=== PATIENT | female | born 1975 | race African-American/Black ===

== ENCOUNTER 2016-07-15 11:38 | Inpatient (IN) | payer BC ==
[2016-07-15 12:06] VITALS: BMI 26.2
--- NOTE | 2016-07-15 14:39 | HP ---
CIWA Score - CIWA Score Nausea/Vomitin-Int. Nausea w/Dry Heave Muscle Tremors: 4-Moderate,w/Arms Extend Anxiety: 4-Mod. Anxious/Guarded Agitation: 4-Moderately Restless Paroxysmal Sweats: 1-Minimal Palms Moist Orientation: 0-Oriented Tacttile Disturbances: 0-None Auditory Disturbances: 0-None Visual Disturbances: 0-None Headache: 0-None Present CIWA-Ar Total Score: 17 Admission ROS BHS - HPI Chief Complaint: DETOX TX FOR ALCOHOL DEPENDENCE Allergies/Adverse Reactions: Allergies Allergy/AdvReac Type Severity Reaction Status Date / Time codeine Allergy Severe Hives Verified 07/15/16 13:18 History of Present Illness: 41 Y/O AA/FEMALE WITH A HX OF ALCOHOL DEPENDENCE SEEKING DETOX TX Exam Limitations: No Limitations - Ebola screening Have you traveled outside of the country in the last 21 days: No Have you had contact with anyone from an Ebola affected area: No Have you been sick,other than usual withdrawal symptoms: No - Review of Systems Constitutional: Chills, Loss of Appetite, Night Sweats, Changes in sleep, Unintentional Wgt. Loss EENT: reports: Blurred Vision, Tearing, Nose Congestion, Dental Problems (TOOTH DECAY) Respiratory: reports: Shortness of Breath (HX ASTHMA), Wheezing Cardiac: reports: Lightheadedness GI: reports: Diarrhea, Nausea, Poor Appetite : reports: Frequency Musculoskeletal: reports: Back Pain, Joint Pain, Muscle Pain Integumentary: reports: Dryness Neuro: reports: Tremors, Dizziness Endocrine: reports: No Symptoms Reported Hematology: reports: Anemia Psychiatric: reports: Orientated x3, Anxious Other Systems: Reviewed and Negative Patient History - Patient Medical History Hx Anemia: Yes (TAKES IRON PILLS) Hx Asthma: Yes (MDI) Hx Chronic Obstructive Pulmonary Disease (COPD): No Hx Cardiac Disorders: No Hx Hypertension: Yes (ON MED) Hx Hypercholesterolemia: No HX Cerebrovascular Accident: No Hx Seizures: No Hx Diabetes: Yes (BORDERLINE- NO MED) Hx Gastrointestinal Disorders: Yes (acid reflux-PRILOSEC OR NEXIUM) Hx Genitourinary Disorders: No Hx Sexually Transmitted Disorders: No (DENIES) Hx Renal Disease (ESRD): No Hx Thyroid Disease: No Hx Human Immunodeficiency Virus (HIV): No (NEGATIVE HX) Hx Hepatitis C: No Hx Depression: No Hx Suicide Attempt: No (DENIES) Hx Schizophrenia: No - Patient Surgical History Past Surgical History: Yes Hx Neurologic Surgery: No Hx Cataract Extraction: No Hx Cardiac Surgery: No Hx Lung Surgery: No Hx Breast Surgery: No Hx Breast Biopsy: No Hx Abdominal Surgery: No Hx Appendectomy: No Hx Cholecystectomy: No Hx Genitourinary Surgery: No Hx Section: No Hx Orthopedic Surgery: Yes (tonsilectomy) Anesthesia Reaction: No - PPD History Previous Implant?: Yes Documented Results: Negative w/o proof Implanted On Prior [facility] Admission?: No PPD to be Administered?: Yes - Reproductive History Patient is a Female of Child Bearing Age (11 -55 yrs old): Yes Last Menstrual Period: 07/01/16 Patient : No - Smoking Cessation Smoking history: Current every day smoker Have you smoked in the past 12 months: Yes Aproximately how many cigarettes per day: 10 Hx Chewing Tobacco Use: No Initiated information on smoking cessation: Yes 'Breaking Loose' booklet given: 07/15/16 - Substance & Tx. History Hx Alcohol Use: Yes (ROBIN/BEER) Hx Substance Use: No (DENIES) Substance Use Type: Alcohol Hx Substance Use Treatment: Yes - Substances Abused Alcohol-robin/beer Route: Oral Frequency: Daily Amount used: 2-3 pts./1-6 pk. Age of first use: 15 Date of Last Use: 07/15/16 Family Disease History - Family Disease History Family Disease History: Diabetes: Grandparent (HTN-), Other: Grandparent , Father (KIDNEY TRANSPLANT) Admission Physical Exam BHS - Vital Signs Vital Signs: Vital Signs - 24 hr 07/15/16 12:02 Temperature 96.7 F L Pulse Rate 74 Respiratory 18 Rate Blood Pressure 140/92 - Physical General Appearance: Yes: Moderate Distress, Alcohol on Breath, Intoxicated, Irritable, Anxious HEENTM: Yes: EOMI, Normocephalic, STEPHANI, Pharynx Normal Respiratory: Yes: Chest Non-Tender, Lungs Clear, Normal Breath Sounds, No Respiratory Distress Neck: Yes: Supple, Trachea in good position Breast: Yes: Breast Exam Deferred Cardiology: Yes: Regular Rhythm, Regular Rate, S1, S2 Abdominal: Yes: Normal Bowel Sounds, Non Tender, Soft Genitourinary: Yes: Within Normal Limits Back: Yes: Within Normal Limits Musculoskeletal: Yes: full range of Motion, Gait Steady Extremities: Yes: Normal Range of Motion, Non-Tender Neurological: Yes: ear specialist II-XII NML intact, Fully Oriented, Alert Integumentary: Yes: Dry, Warm Lymphatic: Yes: Within Normal Limits - Diagnostic (1) Alcohol dependence with uncomplicated withdrawal Current Visit: Yes Status: Acute (2) Asthma Current Visit: Yes Status: Chronic Qualifiers: Asthma severity: mild intermittent Asthma complication type: uncomplicated Qualified Code(s): J45.20 - Mild intermittent asthma, uncomplicated (3) GERD (gastroesophageal reflux disease) Current Visit: Yes Status: Chronic Qualifiers: Esophagitis presence: without esophagitis Qualified Code(s): K21.9 - Gastro-esophageal reflux disease without esophagitis (4) Borderline diabetes mellitus Current Visit: Yes Status: Suspected (5) History of anemia Current Visit: Yes Status: Suspected (6) Hypertension Current Visit: Yes Status: Chronic Qualifiers: Hypertension type: essential hypertension Qualified Code(s): I10 - Essential (primary) hypertension Cleared for Admission S - Detox or Rehab [facility] Level of Care: Medically Managed Detox Regimen/Protocol: Librium [facility] Breath Alcohol Content Breath Alcohol Content: 0.062 Urine Pregancy Test - Result Urine Test Results: Negative- NO Line Present Urine Drug Screen - Results Drug Screen Negative: Yes
[2016-07-15] MEDS ORDERED: LOPERAMIDE HCL 2 MG CAPSULE PO PRN (14:48)
[2016-07-15] MEDS ORDERED: MAG HYDROX/AL HYDROX/SIMETH 30 ML UNIT-DOSE CUP PO PRN (14:48)
[2016-07-15] MEDS ORDERED: P-EPHED 60MG/TRIPROLIDI 2.5MG TABLET PO PRN (14:48)
[2016-07-15] MEDS ORDERED: IBUPROFEN 400 MG TABLET (FP) PO PRN (14:48)
[2016-07-15] MEDS ORDERED: NICOTINE POLACRILEX 2 MG GUM BUC PRN (14:48)
[2016-07-15] MEDS ORDERED: guaiFENesin/D-METHORPHAN HB 10 ML UNIT-DOSE CUPS PO PRN (14:48)
[2016-07-15] MEDS ORDERED: MAGNESIUM CITRATE 300 ML BOTTLE PO PRN (14:48)
[2016-07-15] MEDS ORDERED: MAGNESIUM HYDROX 2400MG/30ML ORAL SUSPENSION 30 ML CUP PO PRN (14:48)
[2016-07-15] MEDS ORDERED: MENTHOL/PHENOL 1 EACH UD MM PRN (14:48)
[2016-07-15] MEDS ORDERED: chlordiazePOXIDE HCL 25 MG CAPSULE PO PRN (14:48)
[2016-07-15] MEDS ORDERED: hydrOXYzine PAMOATE 25 MG CAPSULE (FP) PO PRN (14:48)
[2016-07-15] MEDS ORDERED: ALBUTEROL SO4 6.7 GM HFA INHALER IH PRN (14:50)
[2016-07-15] MEDS ORDERED: ALBUTEROL SO4 0.083% IH SOL 2.5 MG/3 ML VIAL.NEB. NEB PRN (14:53)
[2016-07-15] MEDS ORDERED: chlordiazePOXIDE HCL 25 MG CAPSULE PO ONE (15:36)
[2016-07-15] MEDS: amLODIPine BESYLATE 5 MG TABLET (FP) PO SCH (15:57)
[2016-07-15] MEDS: NICOTINE 14 MG/24 HOURS TOPICAL PATCH TD SCH (15:59)
[2016-07-15] MEDS: FERROUS SO4 325 MG TABLET (FP) PO SCH (18:04)
[2016-07-15] MEDS: chlordiazePOXIDE HCL 25 MG CAPSULE PO SCH ×2 (18:04→22:15)
[2016-07-15] MEDS: LORATADINE 10 MG TABLET PO SCH (19:59)
[2016-07-15] MEDS: FLUTICASONE PROP 0.05% 16 GM NASAL SPRAY NS SCH (20:00)
[2016-07-15 20:11] LABS: URINE APPEARANCE SLCLOUDY; URINE BILIRUBIN NEGATIVE (NEGATIVE); URINE BLOOD NEGATIVE (NEGATIVE); URINE COLOR YELLOW; URINE GLUCOSE (UA) NEGATIVE (NEGATIVE); URINE KETONE NEGATIVE (NEGATIVE); URINE NITRITE NEGATIVE (NEGATIVE); URINE PROTEIN NEGATIVE (NEGATIVE); URINE UROBILINOGEN NEGATIVE E.U./dl (0.2-1.0)
[2016-07-15 20:17] LABS: URINE LEUK ESTERASE TRACE (NEGATIVE)
[2016-07-15 20:36] LABS: URINE BACTERIA MODERATE /hpf (NONE SEEN); URINE HYALINE CAST 1 /lpf; URINE MUCUS FEW; URINE WBC 1 /hpf (3-5)
[2016-07-15] MEDS: diphenhydrAMINE HCL 50 MG CAPSULE PO PRN (22:15)
[2016-07-15] MEDS: THIAMINE HCL 100 MG TABLET (FP) PO SCH (22:16)
[2016-07-15] MEDS: ACETAMINOPHEN 325 MG TABLET (FP) PO PRN (22:16)
[2016-07-15] MEDS: BUDESONIDE/FORMETEROL FUMARATE 80/4.5 mcg INHALER IH SCH (22:17)
[2016-07-16 02:28] LABS: HIV 1 & 2 AB NEGATIVE; HIV 1 AGp24 NEGATIVE
[2016-07-16] MEDS: chlordiazePOXIDE HCL 25 MG CAPSULE PO SCH ×4 (05:37→22:26)
[2016-07-16] MEDS: LORATADINE 10 MG TABLET PO SCH (10:15)
[2016-07-16] MEDS: BUDESONIDE/FORMETEROL FUMARATE 80/4.5 mcg INHALER IH SCH ×2 (10:16→22:25)
[2016-07-16] MEDS: FLUTICASONE PROP 0.05% 16 GM NASAL SPRAY NS SCH (10:16)
[2016-07-16] MEDS: CALCIUM 500MG/VIT-D 200 UNITS COMBO TABLET (FP) PO SCH (10:16)
[2016-07-16] MEDS: amLODIPine BESYLATE 5 MG TABLET (FP) PO SCH (10:16)
[2016-07-16] MEDS: PRENATAL VITAMINS W/ FOLIC ACID TABLET (FP) PO SCH (10:16)
[2016-07-16] MEDS: FERROUS SO4 325 MG TABLET (FP) PO SCH (10:17)
[2016-07-16 10:18] LABS: MCH 23.8 pg (25.7-33.7); MCHC 30.5 g/dl (32.0-36.0); MEAN CELL VOLUME 78.1 fl (80-96); MEAN PLT VOLUME 8.5 fl (7.5-11.1); PLATELET COUNT 222 K/MM3 (134-434); RDW 21.7 % (11.6-15.6); WHITE BLOOD COUNT 8.6 K/mm3 (4.0-10.0)
[2016-07-16 10:26] LABS: ALBUMIN 4.1 g/dl (3.4-5.0); ALK PHOS 74 U/L (45-117); ANION GAP 13 (8-16); BILIRUBIN,TOTAL 0.4 mg/dL (0.2-1.0); CALCIUM 8.6 mg/dL (8.5-10.1); CO2 25 mmol/L (21-32); CREATININE 0.7 mg/dL (0.55-1.02); GLUCOSE,RANDOM 103 mg/dL (74-106); SGOT/AST 26 U/L (15-37); SGPT/ALT 16 U/L (12-78); TOT PROT 7.7 g/dl (6.4-8.2)
--- NOTE | 2016-07-16 11:14 | EKG ---
Test Reason : Blood Pressure : / mmHG Vent. Rate : 069 BPM Atrial Rate : 069 BPM P-R Int : 140 ms QRS Dur : 086 ms QT Int : 404 ms P-R-T Axes : 006 054 049 degrees QTc Int : 432 ms NORMAL SINUS RHYTHM NON-SPECIFIC INTRA-VENTRICULAR CONDUCTION DELAY NO PREVIOUS ECGS AVAILABLE Confirmed by YULISSA ROGERS MD ([id number]) on 07/16/2016 11:14:16 AM Referred By: Confirmed By:YULISSA ROGERS MD
[2016-07-16] MEDS: NICOTINE 14 MG/24 HOURS TOPICAL PATCH TD SCH (12:01)
[2016-07-16 13:23] LABS: ANISOCYTOSIS 3+; HYPOCHROMIA 2+; MICROCYTOSIS FEW; POLYCHROMASIA RARE
[2016-07-16 13:24] LABS: SICKLE CELL SCREEN POSITIVE (NEGATIVE)
--- NOTE | 2016-07-16 13:42 | PN ---
S CIWA - CIWA Score Nausea/Vomitin Muscle Tremors: 4-Moderate,w/Arms Extend Anxiety: 2 Agitation: 2 Paroxysmal Sweats: No Perspiration Orientation: 0-Oriented Tacttile Disturbances: 2-Mild Itch/Numbness/Burn Auditory Disturbances: 0-None Visual Disturbances: 2-Mild Sensitivity Headache: 0-None Present CIWA-Ar Total Score: 15 BHS Progress Note (SOAP) Subjective: Back Ache, Diarrhea, Nausea, Tremors, Interrupted sleep. Objective: PT. A & O X 3, OBSERVED AMBULATING ON UNIT. 07/16/16 13:39 Vital Signs Temperature 98 F 07/16/16 10:35 Pulse Rate 84 07/16/16 10:35 Respiratory Rate 16 07/16/16 10:35 Blood Pressure 124/79 07/16/16 10:35 O2 Sat by Pulse Oximetry (%) Laboratory Last Values WBC 8.6 K/mm3 (4.0-10.0) 07/16/16 06:00 RBC 3.72 M/mm3 (3.60-5.2) 07/16/16 06:00 Hgb 8.9 GM/dL (10.7-15.3) L 07/16/16 06:00 Hct 29.0 % (32.4-45.2) L 07/16/16 06:00 MCV 78.1 fl (80-96) L 07/16/16 06:00 MCHC 30.5 g/dl (32.0-36.0) L 07/16/16 06:00 RDW 21.7 % (11.6-15.6) H 07/16/16 06:00 Plt Count 222 K/MM3 (134-434) 07/16/16 06:00 MPV 8.5 fl (7.5-11.1) 07/16/16 06:00 Polychromasia Rare 07/16/16 06:00 Hypochromic-Microcytic 2+ 07/16/16 06:00 Anisocytosis 3+ 07/16/16 06:00 Microcytosis Few 07/16/16 06:00 Sickle Cell Screen Positive (NEGATIVE) 07/16/16 06:00 Sodium 139 mmol/L (136-145) 07/16/16 06:00 Potassium 3.9 mmol/L (3.5-5.1) 07/16/16 06:00 Chloride 101 mmol/L (98-107) 07/16/16 06:00 Carbon Dioxide 25 mmol/L (21-32) 07/16/16 06:00 Anion Gap 13 (8-16) 07/16/16 06:00 BUN 9 mg/dL (7-18) 07/16/16 06:00 Creatinine 0.7 mg/dL (0.55-1.02) 07/16/16 06:00 Creat Clearance w eGFR > 60 (>60) 07/16/16 06:00 Random Glucose 103 mg/dL (74-106) 07/16/16 06:00 Calcium 8.6 mg/dL (8.5-10.1) 07/16/16 06:00 Total Bilirubin 0.4 mg/dL (0.2-1.0) 07/16/16 06:00 AST 26 U/L (15-37) 07/16/16 06:00 ALT 16 U/L (12-78) 07/16/16 06:00 Alkaline Phosphatase 74 U/L (45-117) 07/16/16 06:00 Total Protein 7.7 g/dl (6.4-8.2) 07/16/16 06:00 Albumin 4.1 g/dl (3.4-5.0) 07/16/16 06:00 Urine Color Yellow 07/15/16 13:00 Urine Appearance Slcloudy 07/15/16 13:00 Urine pH 5.0 (5.0-8.0) 07/15/16 13:00 Ur Specific [place] 1.010 (1.001-1.035) 07/15/16 13:00 Urine Protein Negative (NEGATIVE) 07/15/16 13:00 Urine Glucose (UA) Negative (NEGATIVE) 07/15/16 13:00 Urine Ketones Negative (NEGATIVE) 07/15/16 13:00 Urine Blood Negative (NEGATIVE) 07/15/16 13:00 Urine Nitrite Negative (NEGATIVE) 07/15/16 13:00 Urine Bilirubin Negative (NEGATIVE) 07/15/16 13:00 Urine Urobilinogen Negative E.U./dl (0.2-1.0) 07/15/16 13:00 Ur Leukocyte Esterase Trace (NEGATIVE) H 07/15/16 13:00 Urine RBC None /hpf (0-3) 07/15/16 13:00 Urine WBC 1 /hpf (3-5) 07/15/16 13:00 Ur Epithelial Cells Rare /hpf (FEW) 07/15/16 13:00 Urine Bacteria Moderate /hpf (NONE SEEN) 07/15/16 13:00 Hyaline Casts 1 /lpf 07/15/16 13:00 Urine Mucus Few 07/15/16 13:00 RPR Titer Nonreactive (NONREACTIVE) 07/16/16 06:00 HIV 1&2 Antibody Screen Negative 07/15/16 13:00 HIV P24 Antigen Negative 07/15/16 13:00 LABS NOTED. Assessment: 07/16/16 13:40 WITHDRAWAL SYMPTOMS. Plan: CONTINUE DETOX. BGM ACBK TOMORROW FOR HISTORY OF BORDERLINE DIABETES (RANDOM GLUCOSE LEVEL NOTED , WITHIN NORMAL LIMITS). ADVISED PATIENT TO FOLLOW-UP WITH [facility] PROIVDER AFTER DISCHARGE FROM DETOX FOR GENERAL MEDICAL ASSESSMENT AND FOR ABNORMAL LAB VALUES.
[2016-07-16] MEDS: THIAMINE HCL 100 MG TABLET (FP) PO SCH (22:26)
[2016-07-16] MEDS: ACETAMINOPHEN 325 MG TABLET (FP) PO PRN (22:26)
[2016-07-16] MEDS: diphenhydrAMINE HCL 50 MG CAPSULE PO PRN (22:27)
[2016-07-17] MEDS: chlordiazePOXIDE HCL 25 MG CAPSULE PO SCH ×2 (05:42→10:44)
[2016-07-17] MEDS: PRENATAL VITAMINS W/ FOLIC ACID TABLET (FP) PO SCH (10:44)
[2016-07-17] MEDS: LORATADINE 10 MG TABLET PO SCH (10:44)
[2016-07-17] MEDS: amLODIPine BESYLATE 5 MG TABLET (FP) PO SCH (10:44)
[2016-07-17] MEDS: CALCIUM 500MG/VIT-D 200 UNITS COMBO TABLET (FP) PO SCH (10:44)
[2016-07-17] MEDS: FERROUS SO4 325 MG TABLET (FP) PO SCH (10:44)
[2016-07-17] MEDS: BUDESONIDE/FORMETEROL FUMARATE 80/4.5 mcg INHALER IH SCH ×2 (10:45→22:27)
[2016-07-17] MEDS: NICOTINE 14 MG/24 HOURS TOPICAL PATCH TD SCH (10:49)
[2016-07-17] MEDS: FLUTICASONE PROP 0.05% 16 GM NASAL SPRAY NS SCH (10:50)
--- NOTE | 2016-07-17 12:42 | PN ---
S CIWA - CIWA Score Nausea/Vomitin Muscle Tremors: 3 Anxiety: 3 Agitation: 2 Paroxysmal Sweats: 1-Minimal Palms Moist Orientation: 0-Oriented Tacttile Disturbances: 1-Very Mild Itch/Numbness Auditory Disturbances: 1-Very Mild Visual Disturbances: 1-Very Mild Sensitivity Headache: 2-Mild CIWA-Ar Total Score: 17 BHS Progress Note (SOAP) Subjective: ALERT,IRRITABLE,ANXIOUS,INTERRUPTED SLEEP,TREMOR Objective: 07/17/16 12:41 Vital Signs Temperature 97.7 F 07/17/16 10:16 Pulse Rate 80 07/17/16 10:16 Respiratory Rate 20 07/17/16 10:16 Blood Pressure 132/74 07/17/16 10:16 O2 Sat by Pulse Oximetry (%) Assessment: 07/17/16 12:41 WITHDRAWAL SYMPTOM Plan: CONTINUE DETOX
[2016-07-17] MEDS: chlordiazePOXIDE 5 MG CAPSULE PO SCH ×2 (18:17→22:28)
[2016-07-17] MEDS: diphenhydrAMINE HCL 50 MG CAPSULE PO PRN (22:28)
[2016-07-17] MEDS: THIAMINE HCL 100 MG TABLET (FP) PO SCH (22:28)
[2016-07-18] MEDS: diphenhydrAMINE HCL 50 MG CAPSULE PO PRN ×2 (00:59→22:14)
[2016-07-18] MEDS: chlordiazePOXIDE 5 MG CAPSULE PO SCH ×2 (05:49→10:19)
[2016-07-18] MEDS: BUDESONIDE/FORMETEROL FUMARATE 80/4.5 mcg INHALER IH SCH ×2 (10:13→22:16)
[2016-07-18] MEDS: LORATADINE 10 MG TABLET PO SCH (10:14)
[2016-07-18] MEDS: CALCIUM 500MG/VIT-D 200 UNITS COMBO TABLET (FP) PO SCH (10:14)
[2016-07-18] MEDS: FLUTICASONE PROP 0.05% 16 GM NASAL SPRAY NS SCH (10:15)
[2016-07-18] MEDS: NICOTINE 14 MG/24 HOURS TOPICAL PATCH TD SCH (10:15)
[2016-07-18] MEDS: amLODIPine BESYLATE 5 MG TABLET (FP) PO SCH (10:17)
[2016-07-18] MEDS: FERROUS SO4 325 MG TABLET (FP) PO SCH (10:17)
[2016-07-18] MEDS: PRENATAL VITAMINS W/ FOLIC ACID TABLET (FP) PO SCH (10:18)
--- NOTE | 2016-07-18 12:35 | PN ---
S Progress Note (SOAP) Subjective: alert,irritable,anxious,interrupted sleep Objective: 07/18/16 12:35 Vital Signs Temperature 98.1 F 07/18/16 09:36 Pulse Rate 80 07/18/16 09:36 Respiratory Rate 18 07/18/16 09:36 Blood Pressure 119/82 07/18/16 09:36 O2 Sat by Pulse Oximetry (%) Assessment: 07/18/16 12:35 withdrawal symptom Plan: continue detox,discharge in am
[2016-07-18] MEDS: chlordiazePOXIDE HCL 10 MG CAPSULE PO SCH ×2 (17:19→22:14)
[2016-07-18] MEDS: ACETAMINOPHEN 325 MG TABLET (FP) PO PRN (22:14)
[2016-07-18] MEDS: THIAMINE HCL 100 MG TABLET (FP) PO SCH (22:14)
[2016-07-19] MEDS: chlordiazePOXIDE HCL 10 MG CAPSULE PO SCH (05:55)
[2016-07-19 06:49] VITALS: BP 115/67; PULSE 72; TEMP 97.6
--- NOTE | 2016-07-19 09:08 | PN ---
S Progress Note (SOAP) Subjective: ALERT,NO COMPLAINT Objective: 07/19/16 09:07 Vital Signs Temperature 97.6 F 07/19/16 06:48 Pulse Rate 72 07/19/16 06:48 Respiratory Rate 18 07/19/16 06:48 Blood Pressure 115/67 07/19/16 06:48 O2 Sat by Pulse Oximetry (%) Assessment: 07/19/16 09:07 DETOX COMPLETED,NO WITHDRAWAL SYMPTOM Plan: DISCHARGE TODAY,FOLLOW UP WITH AFTER CARE PROGRAM ARRANGEMENT
--- NOTE | 2016-07-19 09:10 | DS ---
[facility] Detox Discharge Summary Admission Date: 07/15/16 Discharge Date: 07/19/16 - History Present History: Alcohol Dependence Additional Comments: FOLLOW UP WITH AFTER [facility] PROGRAM ARRANGEMENT ANF PMD FOR MEDICAL PROBLEM Pertinent Past History: ASTHMA HYPERTENSION ANEMIA BORDERLINED DIABETES MELLITUS - Physical Exam Results Vital Signs: Vital Signs Temperature 97.6 F 07/19/16 06:48 Pulse Rate 72 07/19/16 06:48 Respiratory Rate 18 07/19/16 06:48 Blood Pressure 115/67 07/19/16 06:48 O2 Sat by Pulse Oximetry (%) Pertinent Admission Physical Exam Findings: WITHDRAWAL SYMPTOM - Treatment Hospital Course: Detox Protocol Followed, Detoxed Safely, Responded well, Discharged Condition Good - Medication Discharge Medications: Ambulatory Orders Albuterol 0.083% Nebulizer Carmen [Ventolin 0.083% Nebulizer Soln -] 1 neb NEB Q6H PRN 07/15/16 Folic Acid - 1 mg PO DAILY 07/15/16 Multivitamins [Tab-A-Vit -] 1 tab PO DAILY 07/15/16 Thiamine Mononitrate [Vitamin B-1] 100 mg PO DAILY 07/15/16 Albuterol Sulfate Inhaler - [Ventolin HFA Inhaler -] 2 inh IH Q4H PRN #1 inhaler 07/19/16 Amlodipine Besylate [Norvasc -] 5 mg PO DAILY #30 tablet 07/19/16 Calcium Carbonate/Vitamin D3 [Calcium 500-Vit D3 200 Tablet] 1 each PO DAILY # 30 tablet 07/19/16 Ferrous Sulfate [Feosol] 325 mg PO DAILY #30 tablet 07/19/16 Fluticasone Prop 0.05% Nasal [Flonase -] 1 spray NS DAILY #1 spray 07/19/16 Loratadine [Claritin -] 10 mg PO DAILY #30 tablet 07/19/16 Salmeterol/Fluticasone [Advair 250Mcg/50Mcg -] 1 inh IH BID #1 inh 07/19/16 - Diagnosis (1) Alcohol dependence with uncomplicated withdrawal Status: Acute (2) Asthma Status: Chronic Qualifiers: Asthma severity: mild intermittent Asthma complication type: uncomplicated Qualified Code(s): J45.20 - Mild intermittent asthma, uncomplicated (3) GERD (gastroesophageal reflux disease) Status: Chronic Qualifiers: Esophagitis presence: without esophagitis Qualified Code(s): K21.9 - Gastro-esophageal reflux disease without esophagitis (4) Hypertension Status: Chronic Qualifiers: Hypertension type: essential hypertension Qualified Code(s): I10 - Essential (primary) hypertension (5) Borderline diabetes mellitus Status: Suspected (6) History of anemia Status: Suspected - AMA Did Patient Leave Against Medical Advice: No
[2016-07-19] MEDS: amLODIPine BESYLATE 5 MG TABLET (FP) PO SCH (09:22)
[2016-07-19] MEDS: BUDESONIDE/FORMETEROL FUMARATE 80/4.5 mcg INHALER IH SCH (09:22)
[2016-07-19] MEDS: CALCIUM 500MG/VIT-D 200 UNITS COMBO TABLET (FP) PO SCH (09:22)
[2016-07-19] MEDS: LORATADINE 10 MG TABLET PO SCH (09:22)
[2016-07-19] MEDS: FLUTICASONE PROP 0.05% 16 GM NASAL SPRAY NS SCH (09:23)
[2016-07-19] MEDS: FERROUS SO4 325 MG TABLET (FP) PO SCH (09:24)
[2016-07-20 14:14] LABS: Hgb A2 1.5 % (0.7-3.1)
== END 2016-07-19 09:47 | disposition home or self-care (01) | DRG 775 ==
LOC: YASAS 11:38 → Y6N 14:30
PROVIDERS: ADMIT Internal Medicine Addiction Medicine; ATTEND Internal Medicine Addiction Medicine
PROC: HZ2ZZZZ Detoxification Services for Substance Abuse Treatment (ICD-10-PCS; principal; 2016-07-15)
DX: F10.230 Alcohol dependence with withdrawal, uncomplicated (principal); F17.210 Nicotine dependence, cigarettes, uncomplicated; J45.20 Mild intermittent asthma, uncomplicated; K21.9 Gastro-esophageal reflux disease without esophagitis; I10 Essential (primary) hypertension; R73.03 Prediabetes; D64.9 Anemia, unspecified
CPT/HCPCS: 36415; 80053; 81003; 81015; 83021; 85027; 85660; 86593; 87389; 93005; 93010